=== PATIENT | male | born 1960 | race Hispanic/Latino ===

== ENCOUNTER 2016-11-14 09:23 | Emergency (ER) | payer SELFPAY ==
[2016-11-14 09:51] VITALS: TEMP 98.3; O2SAT 100
--- NOTE | 2016-11-14 10:05 | ED.PDOC ---
History of Present Illness - General Chief Complaint: Skin/Abrasion/Tear Stated Complaint: Skin irritation Time Seen by Provider: 11/14/16 09:48 Source: patient Exam Limitations: no limitations - History of Present Illness Initial Comments: 2 D BUTTOCK ABSCESS, LEFT SIDE. Severity: severe Improving Factors: nothing Worsening Factors: nothing Associated Symptoms: denies symptoms Allergies/Adverse Reactions: Allergies NO KNOWN ALLERGY Allergy (Verified 11/14/16 09:39) Home Medications: Ambulatory Orders ALPRAZolam [Xanax] 0.5 mg PO BID PRN 11/14/16 Doxycycline Hyclate 100 mg PO BID #20 tab 11/14/16 HYDROcodone 10MG/APAP 325MG [[place] 10/325] 1 tab PO BID PRN 11/14/16 Mupirocin 2 % Oint [Bactroban Oint] 22 gm TOP BID #1 tube 11/14/16 Sulfa/Trimeth 800/160 (Ds) Tab [Bactrim DS Tab] 1 unit PO BID #20 tab 11/14/16 Review of Systems - Review of Systems Constitutional: Denies: chills, fever EENTM: States: no symptoms reported Respiratory: States: no symptoms reported Cardiology: States: no symptoms reported Gastrointestinal/Abdominal: States: no symptoms reported Genitourinary: States: no symptoms reported Musculoskeletal: States: no symptoms reported Skin: States: lesions, lumps Neurological: States: no symptoms reported Endocrine: States: no symptoms reported Hematologic/Lymphatic: States: no symptoms reported All other Systems: Reviewed and Negative Past Medical History (General) - Patient Medical History Hx Stroke: No Hx Congestive Heart Failure: No Hx Diabetes: No - Vaccination History Hx Influenza Vaccination: No Hx Pneumococcal Vaccination: No - Social History Hx Tobacco Use: No Family Medical History - Family History Father Family History: Unknown Living Status: Unknown Hx Family;Other: Did not know his father Physical Exam - Physical Exam General Appearance: Alert, Well Nourished Eyes, Ears, Nose, Throat Exam: PERRL/EOMI, normal ENT inspection Neck: non-tender, full range of motion Cardiovascular/Chest: normal peripheral pulses, regular rate, rhythm Respiratory: chest non-tender, lungs clear Gastrointestinal/Abdominal: normal bowel sounds, non tender Back Exam: normal inspection, no CVA tenderness Extremity: normal range of motion, non-tender Neurologic: alert, oriented x 3 Skin Character: abscess, erythema, tenderness, warm, other - INDURATED BUT NOT FLUCTUANT. Lymphatic: no adenopathy Progress - Progress Progress: 11/14/16 10:09 L GLUTEAL CLEFT ABSCESS; NOT YET AMENABLE TO I&D. RX'D PO ABX DOUBLE COVERAGE FOR MRSA. RX'D MUPIROCIN TOPICAL WELL. Departure - Departure Clinical Impression: Abscess, gluteal cleft Disposition: Discharge to Home or Self Care Condition: Good Departure Forms: ED Discharge - Pt. Copy, Patient Portal Self Enrollment Instructions: DI for Skin Abscess Diet: resume usual diet Activity: increase activity as tolerated Prescriptions: Doxycycline Hyclate 100 mg PO BID #20 tab Mupirocin 2 % Oint [Bactroban Oint] 22 gm TOP BID #1 tube Sulfa/Trimeth 800/160 (Ds) Tab [Bactrim DS Tab] 1 unit PO BID #20 tab Home Medications: Ambulatory Orders ALPRAZolam [Xanax] 0.5 mg PO BID PRN 11/14/16 Doxycycline Hyclate 100 mg PO BID #20 tab 11/14/16 HYDROcodone 10MG/APAP 325MG [[place] 10/325] 1 tab PO BID PRN 11/14/16 Mupirocin 2 % Oint [Bactroban Oint] 22 gm TOP BID #1 tube 11/14/16 Sulfa/Trimeth 800/160 (Ds) Tab [Bactrim DS Tab] 1 unit PO BID #20 tab 11/14/16 Additional Instructions: Please see you regular doctor if the area does not improve over 10 days.
[2016-11-14 10:44] VITALS: BP 126/83
== END 2016-11-14 10:13 | disposition home or self-care (01) ==
LOC: ER 09:23
DX: L02.31 Cutaneous abscess of buttock (principal)

== ENCOUNTER 2016-11-19 11:03 | Emergency (ER) | payer SELFPAY ==
--- NOTE | 2016-11-19 11:37 | ED.PDOC ---
History of Present Illness - General Time Seen by Provider: 11/19/16 11:23 Source: patient Exam Limitations: no limitations - History of Present Illness Initial Comments: The patient is a 56-year-old male presenting to the emergency room secondary felon of the third digit of the right hand and a abscess formation at the superior aspect of his gluteal fold. The gluteal abscess is draining already. the patient was seen 5 days ago and written 2 prescriptions, only one of which did he get filled. No fevers. No other new lesions. Timing/Duration: 1 week Severity: moderate Improving Factors: nothing Worsening Factors: nothing Associated Symptoms: denies symptoms Allergies/Adverse Reactions: Allergies NO KNOWN ALLERGY Allergy (Verified 11/14/16 09:39) Home Medications: Ambulatory Orders ALPRAZolam [Xanax] 0.5 mg PO BID PRN 11/14/16 Doxycycline Hyclate 100 mg PO BID #20 tab 11/14/16 HYDROcodone 10MG/APAP 325MG [[place] 10/325] 1 tab PO BID PRN 11/14/16 Mupirocin 2 % Oint [Bactroban Oint] 22 gm TOP BID #1 tube 11/14/16 Sulfa/Trimeth 800/160 (Ds) Tab [Bactrim DS Tab] 1 unit PO BID #20 tab 11/14/16 Cephalexin Monohydrate [Keflex] 500 mg PO Q8H #30 cap 11/19/16 Sulfa/Trimeth 800/160 (Ds) Tab [Bactrim DS Tab] 1 ea PO BID #20 tab 11/19/16 Review of Systems - Review of Systems Constitutional: States: no symptoms reported EENTM: States: no symptoms reported Respiratory: States: no symptoms reported Cardiology: States: no symptoms reported Gastrointestinal/Abdominal: States: no symptoms reported Genitourinary: States: no symptoms reported Musculoskeletal: States: no symptoms reported Skin: States: see HPI Neurological: States: no symptoms reported Endocrine: States: no symptoms reported All other Systems: No Change from Baseline Past Medical History (General) - Patient Medical History Hx Stroke: No Hx Congestive Heart Failure: No Hx Diabetes: No - Vaccination History Hx Influenza Vaccination: No Hx Pneumococcal Vaccination: No - Social History Hx Tobacco Use: No Family Medical History - Family History Father Family History: Unknown Living Status: Unknown Hx Family;Other: Did not know his father Physical Exam - Physical Exam General Appearance: Alert, Comfortable, No apparent distress Eye Exam: bilateral normal Ears, Nose, Throat: hearing grossly normal, normal ENT inspection, normal pharynx Neck: non-tender, full range of motion, supple, normal inspection Respiratory: chest non-tender, lungs clear, normal breath sounds, no respiratory distress, no accessory muscle use Cardiovascular/Chest: normal peripheral pulses, no edema Peripheral Pulses: radial,right: 2+, radial,left: 2+, dorsalis pedis,right: 2+, dorsalis pedis,left: 2+ Rectal Exam: deferred Back Exam: no CVA tenderness, no vertebral tenderness Extremity: normal range of motion, no pedal edema, normal capillary refill Neurologic: alert, normal mood/affect, oriented x 3 Skin Exam: normal color - with the exception of the abscesses as per the HPI Progress - Progress Progress: 11/19/16 11:50 the patient is a 56-year-old male presenting to the emergency room due to a gluteal fold abscess that has been present about a week and a third digit felon of the right hand, present for a few days. As the doxycycline was prohibitively expensive, the patient will be written for Keflex and a longer prescription of Bactrim wound culture has been performed here today for follow- up if needed. He should follow-up with his primary care DrChe before the end of the week. He should wash the wounds twice daily with antibacterial soap. ER warnings were given for any acute worsening. Risks and benefits of procedures explained and the patient agreed to proceed. Felon incision and drainage: cleaned with alcohol. 11 blade scalpel used to make three quarters cm incision for drainage. 1cc pus obtained and cx taken. ebl less than 1 cc. nvi after. mechanical function preserved. glueal abscess 1.5 inch in diameter already draining. 3cc of lidocaine without epi used for local anaesthetic and a 3/4 in incision made centrally to allow for better drainage. 1 cc pus obtained. 4x4 placed for drainage. ebl none. cavity explored with swab - Results/Orders Results/Orders: Wound culture performedfrom finger Departure - Departure Clinical Impression: Gluteal abscess, Felon of finger of right hand Disposition: Discharge to Home or Self Care Condition: Fair Instructions: DI for Skin Abscess Diet: regular diet Activity: increase activity as tolerated Prescriptions: Cephalexin Monohydrate [Keflex] 500 mg PO Q8H #30 cap Sulfa/Trimeth 800/160 (Ds) Tab [Bactrim DS Tab] 1 ea PO BID #20 tab Home Medications: Ambulatory Orders ALPRAZolam [Xanax] 0.5 mg PO BID PRN 11/14/16 Doxycycline Hyclate 100 mg PO BID #20 tab 11/14/16 HYDROcodone 10MG/APAP 325MG [[place] 10/325] 1 tab PO BID PRN 11/14/16 Mupirocin 2 % Oint [Bactroban Oint] 22 gm TOP BID #1 tube 11/14/16 Sulfa/Trimeth 800/160 (Ds) Tab [Bactrim DS Tab] 1 unit PO BID #20 tab 11/14/16 Cephalexin Monohydrate [Keflex] 500 mg PO Q8H #30 cap 11/19/16 Sulfa/Trimeth 800/160 (Ds) Tab [Bactrim DS Tab] 1 ea PO BID #20 tab 11/19/16 Additional Instructions: the patient is a 56-year-old male presenting to the emergency room due to a gluteal fold abscess that has been present about a week and a third digit felon of the right hand, present for a few days. As the doxycycline was prohibitively expensive, the patient will be written for Keflex and a longer prescription of Bactrim wound culture has been performed here today for follow- up if needed. He should follow-up with his primary care DrChe before the end of the week. He should wash the wounds twice daily with antibacterial soap. ER warnings were given for any acute worsening.
[2016-11-19] MEDS ORDERED: LIDOCAINE 1% 10 ML VIAL INJ ONE (11:42)
[2016-11-19 12:06] VITALS: BP 138/77; TEMP 97.4
[2016-11-19] MEDS: IBUPROFEN 200 MG TAB PO ONE (18:05)
== END 2016-11-19 12:18 | disposition home or self-care (01) ==
LOC: ER 11:03
DX: L03.011 Cellulitis of right finger (principal); L02.31 Cutaneous abscess of buttock; Z79.899 Other long term (current) drug therapy

== ENCOUNTER 2017-04-05 23:56 | Emergency (ER) | payer OTHER ==
[2017-04-06 00:09] VITALS: BP 136/87; TEMP 97.1; O2SAT 94
--- NOTE | 2017-04-06 00:18 | ED.PDOC ---
History of Present Illness - General Chief Complaint: Dental/Mouth Stated Complaint: Knocked out teeth Time Seen by Provider: 04/06/17 00:05 Source: patient, RN notes reviewed, Vital Signs reviewed, police Additional Information: Patient brought in by Police for assessment following front tooth avulsion in [employer]. Pt is a poor historian given intoxication. Avulsed tooth not available for reimplantation. No other obvious deformities. Pt stating he "just need a Z. I need a Xanax. I get them on the street for my anxiety". Patient told I am not able to give controlled medicines to patients in the same way he receives them on the street. I told him he did not have a medical indication for me to prescribe him Xanax. - History of Present Illness Timing/Duration: 1-3 hours Severity: moderate Improving Factors: nothing Worsening Factors: nothing Associated Symptoms: other - complaining of anxiety. obviously intoxicated Allergies/Adverse Reactions: Allergies NO KNOWN ALLERGY Allergy (Verified 11/14/16 09:39) Home Medications: Ambulatory Orders ALPRAZolam [Xanax] 0.5 mg PO BID PRN 11/14/16 Doxycycline Hyclate 100 mg PO BID #20 tab 11/14/16 HYDROcodone 10MG/APAP 325MG [[place] 10/325] 1 tab PO BID PRN 11/14/16 Mupirocin 2 % Oint [Bactroban Oint] 22 gm TOP BID #1 tube 11/14/16 Sulfa/Trimeth 800/160 (Ds) Tab [Bactrim DS Tab] 1 unit PO BID #20 tab 11/14/16 Cephalexin Monohydrate [Keflex] 500 mg PO Q8H #30 cap 11/19/16 Sulfa/Trimeth 800/160 (Ds) Tab [Bactrim DS Tab] 1 ea PO BID #20 tab 11/19/16 Review of Systems - Review of Systems Constitutional: States: no symptoms reported EENTM: States: see HPI - , front tooth avulsed. Respiratory: States: no symptoms reported Cardiology: States: no symptoms reported Gastrointestinal/Abdominal: States: no symptoms reported Genitourinary: States: no symptoms reported Musculoskeletal: States: no symptoms reported Skin: States: no symptoms reported Neurological: States: anxiety - and intoxicated Endocrine: States: no symptoms reported Hematologic/Lymphatic: States: no symptoms reported Unable to Obtain Due To: clinical condition Past Medical History (General) - Patient Medical History Hx Seizures: No Hx Stroke: No Hx Dementia: No Hx Asthma: No Hx of COPD: No Hx Cardiac Disorders: No Hx Congestive Heart Failure: No Hx Pacemaker: No Hx Hypertension: No Hx Thyroid Disease: No Hx Diabetes: No Hx Gastroesophageal Reflux: No Hx Renal Disease: No Hx Cancer: No Hx of HIV: No Hx Hepatitis C: No Hx MRSA: No Surgical History: no surgical history - Vaccination History Hx Tetanus, Diphtheria Vaccination: No Hx Influenza Vaccination: No Hx Pneumococcal Vaccination: No Immunizations Up to Date: Yes - Social History Hx Tobacco Use: Yes Hx Alcohol Use: Yes Family Medical History - Family History Father Family History: Unknown Living Status: Unknown Hx Family;Other: Did not know his father Physical Exam - Physical Exam General Appearance: No apparent distress - at rest, Unkempt Eye Exam: bilateral normal Ears, Nose, Throat: hearing grossly normal, other - Right front tooth maxillary avulsed. No active bleeding. 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 In terms of his intoxication, he is safe, in my opinion, to remain in the custody of the police. I feel he will be able to sober up with time and hydration which will be available to him in skilled nursing. Meat And Poultry Inspector advised to have patient return to ER and/or get evaluated by a medical professional if his condition worsens. Pt needs to follow-up with dentist for routine dental care. Motrin ok for pain as needed tid. Departure - Departure Clinical Impression: Intoxication Tooth avulsion Qualifiers: Encounter type: initial encounter Qualified Code(s): S03.2XXA - Dislocation of tooth, initial encounter Time of Disposition: 00:18 Disposition: Custodial Condition: Fair Departure Forms: ED Discharge - Pt. Copy, Patient Portal Self Enrollment Instructions: DI for Fractured Tooth Home Medications: Ambulatory Orders ALPRAZolam [Xanax] 0.5 mg PO BID PRN 11/14/16 Doxycycline Hyclate 100 mg PO BID #20 tab 11/14/16 HYDROcodone 10MG/APAP 325MG [[place] 10/325] 1 tab PO BID PRN 11/14/16 Mupirocin 2 % Oint [Bactroban Oint] 22 gm TOP BID #1 tube 11/14/16 Sulfa/Trimeth 800/160 (Ds) Tab [Bactrim DS Tab] 1 unit PO BID #20 tab 11/14/16 Cephalexin Monohydrate [Keflex] 500 mg PO Q8H #30 cap 11/19/16 Sulfa/Trimeth 800/160 (Ds) Tab [Bactrim DS Tab] 1 ea PO BID #20 tab 11/19/16 Additional Instructions: Ok to take ibuprofen 200 mg to 400 mg three times a day as needed for pain. Ice to area of avulsed tooth three times a day as needed for pain. Stay well hydrated with water.
== END 2017-04-06 00:27 ==
LOC: ER 23:56
DX: S03.2XXA Dislocation of tooth, initial encounter (principal); F10.129 Alcohol abuse with intoxication, unspecified; Y04.0XXA Assault by unarmed brawl or fight, initial encounter; Y92.9 Unspecified place or not applicable